=== PATIENT | male | born 1950 | race Caucasian/White ===

== ENCOUNTER 2017-11-23 07:52 | Observation (INO) | payer MEDICARE, OTHER ==
[~2017-11-23] VITALS: Ht 180.3 cm; Wt 92.0 kg
[~2017-11-23 07:52] MED LIST: ASPI-516 CHEW; ATOR10 PO; CLON.2T T-DERMAL; ENOX40P SQ; FAMO20TA2 PO; GABA300C5 PO; GNP8.6TA PO; HYDR-3583 PO; LEVA500T33 PO; LISI-515 PO; LISI-590 PO; MAGN400S PO; METH500T3 PO; METO25TA3 PO; POLY17S PO; PRIL20TA2 PO; QUET1TAB7 PO; SENN1TAB PO; TAMS5CAP PO; WHEEMIS3; XARE10TA PO
[2017-11-23 07:54] VITALS: BP 151/64; PULSE 65; RESP 16; TEMP 97.5; O2SAT 97
[2017-11-23] MEDS ORDERED: MULT-65 PO (08:18)
[2017-11-23] MEDS ORDERED: CITA20TA4 PO (08:18)
[2017-11-23] MEDS ORDERED: BISACODYL 10 MG SUPP RECTAL PRN (09:45)
[2017-11-23] MEDS ORDERED: MAGNESIUM HYDROXIDE SUSP 30 ML CUP PO PRN (09:45)
[2017-11-23] MEDS ORDERED: MORPHINE SULFATE 2 MG/ML SYRINGE IV PUSH PRN (09:45)
[2017-11-23] MEDS ORDERED: ACETAMINOPHEN/HYDROcodone 325 MG/5 MG TAB PO PRN (09:45)
[2017-11-23] MEDS ORDERED: ACETAMINOPHEN 325 MG TAB PO PRN (09:45)
[2017-11-23] MEDS ORDERED: ACETAMINOPHEN/HYDROcodone 325 MG/10 MG TAB PO PRN (09:45)
[2017-11-23] MEDS ORDERED: ONDANSETRON HCL 4 MG/2 ML VIAL IVP PRN (09:45)
[2017-11-23] MEDS ORDERED: LACTULOSE SYRUP 20 GM/30 ML CUP PO PRN (09:45)
[2017-11-23] MEDS ORDERED: NALOXONE HCL 0.4 MG/ML AMP IV PUSH PRN ×2 (09:45)
[2017-11-23] MEDS ORDERED: SENNOSIDES 8.6 MG TAB PO PRN (09:45)
[2017-11-23] MEDS ORDERED: SODIUM CHLORIDE 0.9% FLUSH 10 ML FLUSH IV FLUSH PRN (09:45)
[2017-11-23] MEDS ORDERED: TEMAZEPAM 15 MG CAP PO PRN (09:45)
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
--- NOTE | 2017-11-23 09:49 | RADRPT ---
EXAM DATE: 11/23/2017 9:16 AM EDT AGE/SEX: 67 years / Male INDICATIONS: Chronic lower back pain, getting worse the past few days. Radiculopathy. CLINICAL DATA: This is the patient's initial encounter. Patient reports that signs and symptoms have been present for 4 - 6 days and indicates a pain score of 3/10. MEDICAL/SURGICAL HISTORY: Hypertension. . Lumbar surgery. RADIATION DOSE: 40.23 CTDI (mGy) COMPARISON: POI, CT LUMBAR SPINE W/O CONTRAST, 10/28/2017. . TECHNIQUE: Contiguous axial images were acquired with a multirow detector CT scanner without contras t. Multiplanar reconstructions in the sagittal and coronal plane were also performed. Using automate d exposure control and adjustment of the mA and/or kV according to patient size, radiation dose was k ept as low as reasonably achievable to obtain optimal diagnostic quality images. DICOM format image data is available electronically for review and comparison. FINDINGS: Vertebrae: Today's exam is compared to the prior study. There continues to be an old stable compress ion fracture injury at the level of L2. Patient is status post lumbar spinal fusion from L1 through L 3. There has been no change in the alignment and position of the lumbar spine and fusion compared to the prior study. The hardware remains grossly intact. No new compression fracture injuries are demons trated. Alignment: Normal. No subluxation. T12-L1: The thecal sac has a normal diameter. No evidence of disc bulge or protrusion. The neural foramina are patent bilaterally. Bilateral pedicular screws in the body of L1. L1-L2: Mild broad-based bulging with mild left lateral bulging. Mild narrowing of the left neural fo ramina. The right neural foramina is patent. No significant changes. Bilateral pedicular screws in th e body of L2. The compression fracture appears to be stable compared to the prior study. There contin ues to be mild retropulsion of bone material posteriorly at the top of L2. No significant spinal demetrius l stenosis. L2-L3: Broad-based bulging with right lateral bulging/protrusion with narrowing of the right neural foramina. The left neural foramina appears patent. There is bilateral facet arthritis. There are bila teral pedicular screws in L3. L3-L4: Mild broad-based bulging and mild right lateral bulging with some mild narrowing of the right neural foramina. The left neural foramina is patent. There is bilateral facet arthritis and hypertro phy ligamentum flavum creating some focal mild to moderate spinal canal stenosis. No significant paul ge. L4-L5: Broad-based bulging and right lateral bulging with some narrowing of the right neural foramin a. The left neural foramen is patent. There is bilateral facet arthritis and hypertrophy ligamentum f lavum creating some mild to moderate spinal canal stenosis. No significant change. L5-S1: Mild broad-based bulging. The neural foramina are patent bilaterally. There is bilateral face t arthritis. No significant changes. CONCLUSION: 1. Stable follow-up CT scan of the lumbar spine compared to the prior examination of 10/28/2017. 2. No significant change in the old compression fracture injury at L2. 3. No significant change in the alignment and position of the lumbar spine and lumbar spinal fusion from L1 through L3. 4. There continues to be broad-based bulging at multiple levels with some mild to moderate spinal ca nal stenosis at L3-4 and L4-5. 5. There is bilateral facet arthritis at multiple levels. Electronically signed by: Colby Singh MD 11/23/2017 9:48 AM EDT
[2017-11-23 10:16] LABS: AUTOMATED NEUTROPHIL # 2.4 TH/MM3 (1.8-7.7); EOSINOPHIL # 0.4 TH/MM3 (0-0.4); EOSINOPHIL % 7.6 % (0.0-4.0); HEMATOCRIT 41.4 % (39.0-51.0); HEMOGLOBIN 13.9 GM/DL (13.0-17.0); LYMPH % 33.7 % (9.0-44.0); LYMPHOCYTE # 1.7 TH/MM3 (1.0-4.8); MEAN CELL VOLUME 85.2 FL (80.0-100.0); MEAN CORPUSCULAR HEMOGLOBIN 28.5 PG (27.0-34.0); MEAN CORPUSCULAR HGB CONC 33.5 % (32.0-36.0); MEAN PLATELET VOLUME 8.1 FL (7.0-11.0); MONO % 9.9 % (0.0-8.0); MONOCYTE # 0.5 TH/MM3 (0-0.9); NEUT % 47.8 % (16.0-70.0); PLATELET COUNT 262 TH/MM3 (150-450); RED BLOOD COUNT 4.86 MIL/MM3 (4.50-5.90); RED CELL DISTRIBUTION WIDTH 12.9 % (11.6-17.2)
[2017-11-23 10:23] LABS: CHLORIDE 105 MEQ/L (98-107); SODIUM (NA) 139 MEQ/L (136-145)
[2017-11-23 10:26] LABS: CALCIUM 8.8 MG/DL (8.5-10.1)
[2017-11-23 10:27] LABS: ALBUMIN 3.6 GM/DL (3.4-5.0); BICARBONATE 26.3 MEQ/L (21.0-32.0); BLOOD UREA NITROGEN 14 MG/DL (7-18); GLUCOSE,RANDOM 103 MG/DL (74-106); PROTHROMBIN TIME - PATIENT 10.5 SEC (9.8-11.6)
[2017-11-23 10:28] LABS: BILIRUBIN, URINE NEG (NEG); BLOOD, URINE NEG (NEG); GLUCOSE,URINE NEG (NEG); KETONE, URINE NEG (NEG); NITRITE,URINE NEG (NEG); PH, URINE 7.5 (5.0-8.5); URINE COLOR YELLOW (YELLW/STRAW); URINE LEUKOCYTE ESTERASE NEG (NEG)
[2017-11-23 10:30] LABS: ALT (GPT) 33 U/L (12-78); AST (GOT) 22 U/L (15-37); CREATININE 0.89 MG/DL (0.60-1.30); GLOMERULAR FILTRATION RATE 85 ML/MIN (>89)
[2017-11-23 10:32] LABS: TOTAL BILIRUBIN ADULT 0.5 MG/DL (0.2-1.0); TOTAL PROTEIN 7.1 GM/DL (6.4-8.2)
[2017-11-23 10:33] LABS: ALKALINE PHOSPHATASE 114 U/L (45-117)
[2017-11-23 10:47] LABS: AMORPHOUS SEDIMENT, URINE MOD; SQUAMOUS EPITHELIAL CELL URINE 0-5 /hpf (0-5)
[2017-11-23 13:05] VITALS: BP 138/62; PULSE 86; RESP 18; O2SAT 96
--- NOTE | 2017-11-23 17:03 | EKG ---
Date Performed: 11/23/2017 Time Performed: 10:00:47 PTAGE: 67 years EKG: SINUS BRADYCARDIA MARKED LEFT AXIS DEVIATION PATTERN CONSISTENT WITH PULMONARY DISEASE ABNO RMAL ECG PREVIOUS TRACING : 03/29/2017 15.10 Since the previous tracing, no significant change noted DOCTOR: Louisa Davis Interpretating Date/Time 11/23/2017 17:00:38
[2017-11-23] MEDS: GABAPENTIN 300 MG CAP PO SCH (18:14)
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
[2017-11-23] MEDS: SODIUM CHLORIDE 0.9% FLUSH 10 ML FLUSH IV FLUSH SCH (20:28)
[2017-11-23] MEDS: DOCUSATE SODIUM 50 MG/SENNA 8.6 MG TAB PO SCH (20:28)
[2017-11-23] MEDS: METOPROLOL TARTRATE 50 MG TAB PO SCH (20:28)
[2017-11-23 20:57] VITALS: BP 126/66; PULSE 76; RESP 16; TEMP 97.6; O2SAT 97
[2017-11-24 00:18] VITALS: BP 131/79; PULSE 63; RESP 16; TEMP 98.3; O2SAT 96
[2017-11-24 03:52] VITALS: BP 127/67; PULSE 63; RESP 16; TEMP 97.9; O2SAT 96
[2017-11-24 08:46] VITALS: BP 114/62; PULSE 60; RESP 18; TEMP 97.7; O2SAT 97
[2017-11-24] MEDS ORDERED: CITALOPRAM HYDROBROMIDE 20 MG TAB PO SCH (09:00)
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
[2017-11-24] MEDS: GABAPENTIN 300 MG CAP PO SCH ×3 (09:49→18:19)
[2017-11-24] MEDS: DOCUSATE SODIUM 50 MG/SENNA 8.6 MG TAB PO SCH (09:49)
[2017-11-24] MEDS: SODIUM CHLORIDE 0.9% FLUSH 10 ML FLUSH IV FLUSH SCH (09:49)
[2017-11-24] MEDS: METOPROLOL TARTRATE 50 MG TAB PO SCH (09:49)
[2017-11-24 12:47] VITALS: BP 116/63; PULSE 58; RESP 18; TEMP 98.2; O2SAT 97
[2017-11-24 16:55] VITALS: BP 117/68; PULSE 61; RESP 14; TEMP 97.7; O2SAT 96
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
--- NOTE | 2017-11-24 19:22 | HHI.DS ---
Discharge Summary Admission Date Nov 23, 2017 at 09:55 Discharge Date: Nov 24, 2017 Admitting Diagnosis RIGHT LEG NUMBNESS, SPINAL STENOSIS. (1) Closed stable burst fracture of lumbar vertebra Diagnosis: Principal ICD Code: S32.001A - Stable burst fracture of unspecified lumbar vertebra, initial encounter for closed fracture CBC/BMP: 11/23/17 0957 11/23/17 0957 Significant Findings Laboratory Tests Test 11/23/17 09:57 11/23/17 10:15 Monocytes (%) (Auto) 9.9 % (0.0-8.0) Eosinophils (%) (Auto) 7.6 % (0.0-4.0) Activated Partial Thromboplast Time 23.3 SEC (24.3-30.1) Estimat Glomerular Filtration Rate 85 ML/MIN (>89) Imaging Last Impressions Lumbar Spine CT 11/23/17 0000 Signed Impressions: CONCLUSION: 1. Stable follow-up CT scan of the lumbar spine compared to the prior examinat ion of 10/28/2017. 2. No significant change in the old compression fracture injury at L2. 3. No significant change in the alignment and position of the lumbar spine and lumbar spinal fusion from L1 through L3. 4. There continues to be broad-based bulging at multiple levels with some mild to moderate spinal canal stenosis at L3-4 and L4-5. 5. There is bilateral facet arthritis at multiple levels. Hospital Course Patient admitted with increased left anterior medial thigh numbness, clicking and crepitance over the previous lumbar operative site. No fevers or chills. No loss of bowel or bladder function. No saddle anesthesia. No lower extremity weakness. Follow-up CT scan lumbar spine stable compared to prior image with some displacement of the right L3 screw. Neurosurgical consultation completed-discussed with patient and he wishes to proceed with revision of the lumbar instrumentation and fusion on an elective outpatient basis. Signs and symptoms to watch for and activity precautions seen with patient He will follow-up with Dr. Balderas outpatient. Pt Condition on Discharge: Stable Discharge Disposition: Discharge Home Discharge Instructions DIET: Follow Instructions for: As Tolerated, No Restrictions ACTIVITIES You can perform: Weight Bearing As Jenna Activities to Avoid: Lifting/Bending, Strenuous Activity Follow up Referrals: Appointment for Follow Up @ Dr Balderas Continued Medications: Citalopram (Citalopram) 20 Mg Tab 20 MG PO DAILY for Control Depression, #30 TAB 0 Refills Gabapentin (Gabapentin) 300 Mg Cap 300 MG PO TID, #90 CAP 0 Refills Lisinopril (Lisinopril) 20 Mg Tab 20 MG PO DAILY for Blood Pressure Management for 30 Days, #30 TAB Metoprolol Tartrate (Metoprolol Tartrate) 25 Mg Tab 50 MG PO Q12HR for Blood Pressure Management for 30 Days, TAB Multiple Vitamin (Multi-Vitamin Daily) 1 Tab Tab 1 TAB PO DAILY for Nutritional Supplement, TAB 0 Refills Tamsulosin (Flomax) 0.4 Mg Cap 0.4 MG PO DAILY for Dysuria for 30 Days, #30 CAP Kashif Balderas MD Nov 24, 2017 19:22
== END 2017-11-24 20:47 | disposition home or self-care (01) ==
LOC: PHED 07:52 → PHEDA 09:55 → NEPFCDU 17:20
PROVIDERS: ADMIT Hospitalist; ATTEND Hospitalist
DX: S32.021A Stable burst fracture of second lumbar vertebra, initial encounter for closed fracture (principal); M48.061 Spinal stenosis, lumbar region without neurogenic claudication; M54.5 Low back pain; R20.0 Anesthesia of skin; I25.2 Old myocardial infarction; M19.90 Unspecified osteoarthritis, unspecified site; G44.009 Cluster headache syndrome, unspecified, not intractable; Z98.1 Arthrodesis status
CPT/HCPCS: 72131; 80053; 81001; 85025; 85610; 85730; 93005; 97161; 99285; G0378; G8987; G8988; G8989

== ENCOUNTER 2018-02-18 06:08 | Inpatient (IN) ==
[2018-02-18] MEDS ORDERED: Metoprolol Tartrate 25 MG Tablet PO ONE (06:38)
[2018-02-18] MEDS ORDERED: Chlorhexidine Gluconate 2% 1 Pack (2 Cloths) TOPICAL ONE (06:38)
[2018-02-18] MEDS ORDERED: Vancomycin Inj 1,000 MG in Sodium Chlor 0.9% Inj 250 ML IV.SIG SCH (07:00)
[2018-02-18] MEDS ORDERED: Sodium Chlor 0.9% Inj 500 ML IV.SIG SCH (07:00)
[2018-02-18] MEDS ORDERED: Thrombin Topical Soln 5,000 UNIT Vial TOPICAL ONE (07:04)
[2018-02-18] MEDS ORDERED: Gelatin Size 100 Topical Foam ONE ×2 (07:04→07:17)
[2018-02-18] MEDS ORDERED: Bupivacaine/Epinephrine 0.5% Inj 50 ML Vial ONE (07:04)
[2018-02-18] MEDS ORDERED: Ketamine Inj 50 MG/5 ML Syringe IV.PUSH ONE (07:38)
[2018-02-18] MEDS ORDERED: Propofol Inj 500 MG/50 ML Vial ONE (07:38)
[2018-02-18] MEDS ORDERED: Neostigmine Inj 5 MG/5 ML Syringe IV.PUSH ONE (08:47)
[2018-02-18] MEDS ORDERED: Glycopyrrolate Inj 1 MG/5 ML Syringe IV.PUSH ONE (08:47)
[2018-02-18] MEDS ORDERED: Normosol-R pH 7.4 Inj 1,000 ML IV.CONT ONE (08:47)
[2018-02-18] MEDS ORDERED: Menthol 5.8 MG Lozenge BUCCAL PRN (12:09)
[2018-02-18] MEDS ORDERED: Magnesium Sulfate Inj 2 GM in Sodium Chlor 0.9% Inj 96 ML IV.SIG PRN (12:09)
[2018-02-18] MEDS ORDERED: Bisacodyl 10 MG Supp RECTAL PRN (12:09)
[2018-02-18] MEDS ORDERED: Calcium Gluconate Inj 1 GM in Sodium Chlor 0.9% Inj 100 ML IV.SIG PRN (12:09)
[2018-02-18] MEDS ORDERED: Acetaminophen 325 MG Tablet PO PRN (12:09)
[2018-02-18] MEDS ORDERED: Morphine Inj 4 MG/ML Vial IV.PUSH PRN (12:09)
[2018-02-18] MEDS ORDERED: Potassium Chlor 20 mEq Premix 20 MEQ/100 ML PIGGYBACK IV.SIG PRN (12:09)
[2018-02-18] MEDS ORDERED: Aluminum/Magnesium/Simethacone Susp 30 ML UDC PO PRN (12:09)
--- NOTE | 2018-02-18 12:28 | P.OP ---
- Preoperative Diagnosis (1) Lumbar pseudoarthrosis (2) Failed back syndrome of lumbar spine (3) Instrumentation failure of anterior column of spine (4) L2 vertebral fracture Date of procedure: 02/18/18 Procedure: Lumbar L1, L2, and L3 posterolateral fusion; exploration of lumbar fusion; revision of L1-3 pedicle screw fixation with removal and re-fixation; right iliac crest autograft harvest; microsurgical technique Anesthesia: DERRELL Surgeon: Sergio Junior MD Earth Science Professor: Krupa Phlilips Operation and Findings: Prior to the procedure, the surgical incision was marked in the preoperative surgical holding room, and the procedure, risks, and potential complications revisited with the patient. Placement of electrodes for intraoperative neurophysiological monitoring was completed. The patient was taken to the operative room, and following induction of general anesthesia, endotracheal intubation was performed. A Saxena catheter, bilateral FABIEN hose and sequential compression devices were placed and kept throughout the procedure. A gram of vancomycin was administered intravenously and the patient was positioned prone, over a Bhavesh table over a Mike frame. All pressure in the preoperative surgical holding room points were carefully padded. The eyes were tapped shut after ointment was applied by the anesthesiologist to prevent corneal abrasion. A Arlyn hugger was placed over the exposed lower body to maintain control of the core body temperature. The lumbar region was prepped and draped in the usual sterile fashion. Once the patient was positioned, a localizing cross-table lateral and AP x-ray was performed with a C-arm. A right paramedian incision at the previous incision site was outlined on the skin approximately 3cm from the midline. The skin incision was made with a #10 blade after infiltrating the skin with 0.5% Marcaine with epinephrine solution. Small bleeders were controlled with the cautery. The dissection was then carried out into deper planes and through the thoracolumbar fascia with a Bovie. The intermuscular septum was identified and the mucles were blunted dissected along the septum. There was a seromatous collection noted at the right L3 screw head along with the fibrotic scar tissue and a loose screw that had pulled out two thirds of the way from the vertebral body. The right L3, L2, and L1 caps were removed along with the jo and as well as the right L3 screw. The right L3 to trajectory was outside the pedicle and inferiorly into the foramen extending into the vertebral body and the right L1 and L2 screws appeared to have a good purchase and exploration of the lateral gutter did not reveal any posterolateral fusion. The transverse processes of the right L1, L2 and L3 vertebral bodies, lateral surface of the facets and the lateral gutters of the spine were carefully cleaned, eliminating all soft tissue and muscle attachments. The area was then irrigated with a large amount of antibiotic solution. Subsequently, the transverse processes, lateral surface of the facets , and lateral gutters of the spine were thoroughly decorticated using the TPS drill with a 5mm cutting ryan, exposing cancellous bone, in preparation for the posterolateral fusion. Using AP and lateral fluoroscopy and new trajectory of the right L3 pedicle screw was undertaken to the pedicle into the vertebral body with subsequent to tap and [place] spine screw placement 7.5 mm in diameter and 55 mm length. The jo extending from right L1-L3 levels was applied to all the screws, and the screw caps were sequentially applied. Final tightening of the screws was completed using a torque wrench. The incision was again thoroughly irrigated with several liters of antibiotic solution, and hemostasis secured with the bipolar cautery. Incision overlying the left iliac crest was then made after infiltrating the skin with 0.5% Marcaine with epinephrine solution. The fascia overlying the crest was detached and the soft tissue also dissected out with a Leksell. Corticocancellous iliac crest bone was then harvested using gouges and the area then irrigated with antibiotic solution and hemostasis achieved with Gelfoam with thrombin. The fascia overlying the crest was then closed with 2-0 Vicryl interrupted stitches and then 3-0 Vicryl subcuticular stitch also placed in interrupted fashion and final skin closure was with laurence. The leg crest autograft bone along with the demineralized bone matrix was then used for a right L1-L2 and L3 posterolateral fusion overlying the decorticated lateral gutter.The construct appeared very secure at this point. The area was then copiously irrigated with Vancomycin solution and powder. The retractors were removed and the bipolar cautery used for hemostasis. The muscle fascia was then approximated using 2-0 Vicryl interrupted stitches and then 3-0 Vicryl subcuticular stitches also placed in interrupted fashion. The final skin closure was completed with Mastisol and Steri-Strips. A sterile dressing was then applied. The patient then turned in supine position, extubated and taken to recovery room. There were no intraoperative complications. All sponge and needle counts were correct at the end of procedure. Estimated blood loss about 150 ml.
[2018-02-18] MEDS ORDERED: *morphine SULFATE 4 MG/ML PERIprocedure ONLY ONE (12:30)
[2018-02-18] MEDS ORDERED: fentaNYL Citrate Inj 100 MCG/2 ML Ampul ONE (12:34)
--- NOTE | 2018-02-18 13:48 | XR ---
EXAM DATE: 02/18/2018 12:44 PM EDT AGE/SEX: 67 years / Male INDICATIONS: L1/2/3 REFUSION W/ REPLACEMENT OF RIGHT ERIK. CLINICAL DATA: This is the patient's initial encounter. Patient reports that signs and symptoms have been present for 1 day and indicates a pain score of Nonresponsive. MEDICAL/SURGICAL HISTORY: None. . Prior fusion, L1/2/3. COMPARISON: [facility], CT LUMBAR SPINE W/O CONTRAST, 11/23/2017. . FINDINGS: Postsurgical changes following revision of a posterior lumbar fusion apparatus from L1 through L3. Th e right posterior erik has been replaced. Lumbar alignment is well-maintained CONCLUSION: Satisfactory appearance of the lumbar spine following revision of the patient's posterior fusion anny ce. Electronically signed by: Nolberto Del Valle MD 02/18/2018 1:47 PM EDT
[2018-02-18] MEDS: Gabapentin 300 MG Capsule PO SCH ×2 (13:56→17:11)
[2018-02-18 16:11] LABS: Baso % (Auto) 0.3 % (0.0-2.0); Eos # (Auto) 0.2 th/mm3 (0.0-0.4); Eos % (Auto) 1.4 % (0.0-4.0); Hematocrit 38.7 % (39.0-51.0); Hemoglobin 12.7 gm/dL (13.0-17.0); Lymph # (Auto) 1.5 th/mm3 (1.0-4.8); Lymph % (Auto) 13.3 % (9.0-44.0); Mean Corpuscular HGB Conc 32.9 % (32.0-36.0); Mean Corpuscular Hemoglobin 28.1 pg (27.0-34.0); Mean Corpuscular Volume 85.6 fL (80.0-100.0); Mean Platelet Volume 8.3 fL (7.0-11.0); Mono # (Auto) 0.7 th/mm3 (0.0-0.9); Mono % (Auto) 6.1 % (0.0-8.0); Neut # (Auto) 8.7 th/mm3 (1.8-7.7); Neut % (Auto) 78.9 % (16.0-70.0); Platelet Count 214 th/mm3 (150-450); Red Blood Count 4.52 mil/mm3 (4.50-5.90); Red Cell Distribution Width 12.5 % (11.6-17.2)
[2018-02-18 16:43] LABS: Calcium 7.7 mg/dL (8.5-10.1); Carbon Dioxide 24.6 meq/L (21.0-32.0); Magnesium 2.1 mg/dL (1.5-2.5)
[2018-02-18] MEDS ORDERED: Zolpidem Tartrate 5 MG Tablet PO PRN (21:00)
[2018-02-19] MEDS: Metoprolol Tartrate 50 MG Tablet PO SCH ×3 (01:32→20:37)
[2018-02-19] MEDS: Senna/Docusate Sodium 8.6/50 MG Tablet PO SCH ×3 (01:32→20:37)
[2018-02-19] MEDS: Gabapentin 300 MG Capsule PO SCH ×3 (10:11→17:49)
[2018-02-19] MEDS: Citalopram 20 MG Tablet PO SCH (10:11)
[2018-02-19] MEDS: Lisinopril 20 MG Tablet PO SCH (10:11)
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
[2018-02-20] MEDS: Senna/Docusate Sodium 8.6/50 MG Tablet PO SCH ×2 (09:57→20:30)
[2018-02-20] MEDS: Gabapentin 300 MG Capsule PO SCH ×3 (09:57→18:13)
[2018-02-20] MEDS: Citalopram 20 MG Tablet PO SCH (09:57)
[2018-02-20] MEDS: Lisinopril 20 MG Tablet PO SCH (09:57)
[2018-02-20] MEDS: Metoprolol Tartrate 50 MG Tablet PO SCH ×2 (09:57→20:30)
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
[2018-02-21] MEDS: Senna/Docusate Sodium 8.6/50 MG Tablet PO SCH (09:37)
[2018-02-21] MEDS: Lisinopril 20 MG Tablet PO SCH (09:38)
[2018-02-21] MEDS: Metoprolol Tartrate 50 MG Tablet PO SCH (09:38)
[2018-02-21] MEDS: Gabapentin 300 MG Capsule PO SCH ×3 (09:38→17:39)
[2018-02-21] MEDS: Citalopram 20 MG Tablet PO SCH (09:38)
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
--- NOTE | 2018-02-21 14:59 | P.DCO ---
- Physical Therapy Order: Evaluate and treat, Improve ambulation, Strength and gait training - Home Health Nursing Order: Wound care and dressing changes, Nursing assessment with vital signs - Certification I have seen patient Monster Recinos on 02/21/18. My clinical findings support the need for the requested home health care services because: Deconditioned with increased weakness, High risk of falls I certify that my clinical findings support that this patient is homebound because: Post-op weakness, Unsteady gait/balance, Unable to use public transportation
[2018-02-21 17:42] VITALS: RESP 18
[2018-02-21 17:59] VITALS: BP 149/68; PULSE 68; TEMP 97.8; O2SAT 95
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
== END 2018-02-21 19:34 | disposition home health service (06) ==
LOC: HSDI 06:08 → N06 13:47
PROVIDERS: ADMIT Neurological Surgery; ATTEND Neurological Surgery